=== PATIENT | male | born 1990 ===

== ENCOUNTER 2017-05-23 14:22 | Emergency (ER) | payer OTHER ==
[2017-05-23 14:36] VITALS: BP 148/70; PULSE 98; RESP 18; TEMP 98; O2SAT 100
[2017-05-23] MEDS ORDERED: Lidocaine 2% Inj (20ml) SC ONE (15:12)
[2017-05-23] MEDS ORDERED: Povidone Iodine Topical 10% Sol ONE (15:17)
[2017-05-23] MEDS ORDERED: Oxycodone/Acetaminophen 5/325 mg Tab PO ONE (15:35)
[2017-05-23] MEDS ORDERED: Oxycodone/Acetaminophen 5/325 mg Tab ONE (15:47)
--- NOTE | 2017-05-23 18:05 | ED PDOC ---
HPI: General Adult Time Seen by Provider: 05/23/17 14:38 Chief Complaint (Nursing): Abnormal Skin Integrity Chief Complaint (Provider): Pubic Abscess Additional History Per: Patient Additional Complaint(s): This is 27 y/o male with inga PMH comes to the ED for evaluation and treatment of pubic an abscess since last one week. As per patient, this abscess started as a pimple which progressed to erythema, tenderness and got infected. Patient admits severe pain at infected site, and associated with fever which he took tylenol. Denies any Urinary symptoms, dizziness, SOB, chest pain or n/v/d. Past Medical History Reviewed: Vital Signs Vital Signs: Last Vital Signs Temp 98 F 05/23/17 14:34 Pulse 98 H 05/23/17 14:34 Resp 18 05/23/17 14:34 BP 148/70 05/23/17 14:34 Pulse Ox 100 05/23/17 14:34 - Medical History PMH: Denies: Anemia, Asthma, CAD - Surgical History Surgical History: No Surg Hx - Family History Family History: States: No Known Family Hx - Living Arrangements Living Arrangements: With Family - Social History Current smoker - smoking cessation education provided: No Ex-Smoker (has not smoked in the last 12 months): No Alcohol: Occasional Drugs: Denies - Home Medications Home Medications: Ambulatory Orders Medication Instructions Recorded Cephalexin [Keflex] 500 mg PO QID #28 capsule 05/23/17 Ibuprofen [Motrin] 600 mg PO Q6H PRN #20 tab 05/23/17 Sulfamethoxazole/Trimethoprim 1 tab PO BID #14 tab 05/23/17 [Bactrim DS 800 mg-160 mg] - Allergies Allergies/Adverse Reactions: Allergies Allergy/AdvReac Type Severity Reaction Status Date / Time No Known Allergies Allergy Verified 05/23/17 14:34 Review of Systems Constitutional: Positive for: Fever. Negative for: Chills Eyes: Negative for: Pain ENT: Negative for: Ear Pain Cardiovascular: Negative for: Chest Pain Respiratory: Negative for: Cough, Shortness of Breath Genitourinary Male: Negative for: Dysuria Musculoskeletal: Negative for: Neck Pain Skin: Negative for: Rash Neurological: Negative for: Weakness, Numbness Physical Exam - Physical Exam Appears: Positive for: No Acute Distress Head Exam: Positive for: ATRAUMATIC Skin: Positive for: Normal Color, Warm, Dry Eye Exam: Positive for: Normal appearance ENT: Positive for: Normal ENT Inspection Neck: Positive for: Normal Cardiovascular/Chest: Positive for: Regular Rate, Rhythm, Chest Non Tender Respiratory: Positive for: Normal Breath Sounds Gastrointestinal/Abdominal: Positive for: Normal Exam, Bowel Sounds, Soft. Negative for: Tenderness Male Genital Exam: Positive for: other (Right pubic 8x4cm erythema with induration and fluctuating mass with significant tenderness to touch.) Back: Positive for: Normal Inspection Neurologic/Psych: Positive for: Alert, Oriented - ECG O2 Sat by Pulse Oximetry: 100 - Progress ED Course And Treament: 27 y/o male with pubic abscess - I & D was done with Lidocain 2% - Percocet stat given Case discussed and Procedure done with Dr. Panda Medical Decision Making Medical Decision Making: Pubic Abscess Procedures - Time-Out Type of Procedure: I & D Site of Procedure: Right pubic area Correct Patient (with visual ID + MR# on ID Band): Yes Correct Procedure: Yes Correct Site Marked: Yes Medication Reconciliation / Bloodwork / Allergies Checked: Yes - Incision and Drainage Site: Right Pubic area Blade Size: 16 I & D Procedure: betadine prep, sterile dressing applied, gauze wick placed Progress: Right pubic I&D was done with half a cm cut, Lots of blood with pus drained. Patient was instructed to come back in 2 days and ER precautions discussed with patient Disposition - Clinical Impression Clinical Impression: Abscess - Patient ED Disposition Is Patient to be Admitted: No - Disposition Referrals: [facility] [Outside] [facility] [Outside] Disposition: Routine/Home Disposition Time: 18:14 Condition: IMPROVED Additional Instructions: follow up with your doctor or in the ER in 2 days for packing removal. return to the ED with any worsening or concerning symptoms. Prescriptions: Cephalexin [Keflex] 500 mg PO QID #28 capsule Ibuprofen [Motrin] 600 mg PO Q6H PRN #20 tab PRN Reason: Pain, Moderate (4-7) Sulfamethoxazole/Trimethoprim [Bactrim DS 800 mg-160 mg] 1 tab PO BID #14 tab Instructions: Abscess (ED) Forms: [employer] (Slovak), [facility] ED School/Work Excuse
== END 2017-05-23 16:07 | disposition home or self-care (01) ==
LOC: H.ER 14:22
DX: L02.214 Cutaneous abscess of groin (principal)

== ENCOUNTER 2017-05-25 11:09 | Emergency (ER) | payer OTHER ==
[2017-05-25 12:17] VITALS: BP 117/66; PULSE 77; RESP 16; TEMP 97.8; O2SAT 98
[2017-05-25] MEDS ORDERED: Lidocaine 2% w Epi 1:100,000 Inj IJ ONE (12:59)
--- NOTE | 2017-05-25 13:03 | ED PDOC ---
HPI: Wound Care - HPI Time Seen by Provider: 05/25/17 12:42 Chief Complaint (Nursing): Wound Check Chief Complaint (Provider): Wound Check History Per: Patient Exam Limitations: no limitations Onset/Duration Of Symptoms: Days (x2) Current Symptoms Are (Timing): Still Present Quality Of Symptoms: Painful, Swollen Additional Complaint(s): 27 y/o male presents to the emergency department for a wound check. Was seen here 2 days ago and had I&D at the right groin. Patient now states packing fell out while in the shower yesterday. Reports taking Bactrim and Keflex as instructed. No fever or chills. Notes swelling appears the same as before. PMD: None Past Medical History Reviewed: Historical Data, Nursing Documentation, Vital Signs Vital Signs: Last Vital Signs Temp 97.8 F 05/25/17 12:15 Pulse 77 05/25/17 12:15 Resp 16 05/25/17 12:15 BP 117/66 05/25/17 12:15 Pulse Ox 98 05/25/17 12:15 - Medical History PMH: No Chronic Diseases Denies: Anemia, Asthma, CAD - Surgical History Surgical History: No Surg Hx - Family History Family History: States: Unknown Family Hx - Social History Current smoker - smoking cessation education provided: No Alcohol: None Drugs: Denies - Home Medications Home Medications: Ambulatory Orders Medication Instructions Recorded Cephalexin [Keflex] 500 mg PO QID #28 capsule 05/23/17 Ibuprofen [Motrin] 600 mg PO Q6H PRN #20 tab 05/23/17 Sulfamethoxazole/Trimethoprim 1 tab PO BID #14 tab 05/23/17 [Bactrim DS 800 mg-160 mg] Naproxen 1 tab PO Q12 PRN #10 tab 05/25/17 - Allergies Allergies/Adverse Reactions: Allergies Allergy/AdvReac Type Severity Reaction Status Date / Time No Known Allergies Allergy Verified 05/23/17 14:34 Review of Systems ROS Statement: Except As Marked, All Systems Reviewed And Found Negative Constitutional: Negative for: Fever, Chills Skin: Positive for: Other (abscess at right groin, s/p I&D, packing fell out) Physical Exam - Reviewed Nursing Documentation Reviewed: Yes Vital Signs Reviewed: Yes - Physical Exam Appears: Positive for: Non-toxic, No Acute Distress Head Exam: Positive for: ATRAUMATIC, NORMAL INSPECTION, NORMOCEPHALIC Skin: Positive for: Normal Color, Warm, Dry Eye Exam: Positive for: EOMI, Normal appearance, PERRL Male Genital Exam: Positive for: other (Right inguinal area: 5.5 cm region of erythema and induration, unable to express any drainage ) Neurologic/Psych: Positive for: Alert, Oriented - ECG O2 Sat by Pulse Oximetry: 98 (RA) Pulse Ox Interpretation: Normal Procedure: Wound Repair - Time Out Time Out: Side verified, Site verified, Patient ID confirmed, Sterile procedures obs. - Consent Obtained Consent obtained: Verbal - Performed by Performed by: Mid-level Provider (GREG Seth) - Location Location:: Right, Leg (Groin) Medical Decision Making Medical Decision Making: Time: 12:59 Initial Plan: * Naproxen 500 mg PO * Ordered Lidocaine 2% w/ Epi for repeat I&D *see procedure note below* Time: 13:29 Patient tolerated procedure well and is medically stable for discharge. Given rx for Naproxen. Patient advised to continue with antibiotics as prescribed. Counseling was provided and all questions were answered regarding the need for follow up in 3 days for wound check. There is agreement to discharge plan. Return if symptoms persist or worsen. Scribe Attestation: Documented by Pilar Enrique, acting as a scribe for Cesario Seth PA-C Provider Scribe Attestation: All medical record entries made by the Scribe were at my direction and personally dictated by me. I have reviewed the chart and agree that the record accurately reflects my personal performance of the history, physical exam, medical decision making, and the department course for this patient. I have also personally directed, reviewed, and agree with the discharge instructions and disposition. Disposition - Clinical Impression Clinical Impression: Abscess, Cellulitis - Patient ED Disposition Is Patient to be Admitted: No Counseled Patient/Family Regarding: Diagnosis, Need For Followup, Rx Given - Disposition Disposition: Routine/Home Disposition Time: 13:29 Condition: STABLE Additional Instructions: Follow up at the clinic or with PMD in 3 days for wound check Prescriptions: Naproxen 1 tab PO Q12 PRN #10 tab PRN Reason: Pain, Severe (8-10) Instructions: Cellulitis (ED), Abscess (ED) Forms: [employer] (Divehi), [facility] ED School/Work Excuse - POA Present On Arrival: None - Incision & Drainage Of Abscess Anesthesia: Lidocaine 2%, With Epi Procedure: Drained Pus (Previous incision deepened and lengthened to 2 cm with moderate purulent drainage expressed), Irrigated Cavity W/Saline, Packed W/ Gauze (1/2in sterile gauze )
[2017-05-25] MEDS ORDERED: Naproxen 500 MG TAB PO ONE (13:26)
[2017-05-25] MEDS ORDERED: Naproxen 500 MG TAB PO STA (13:29)
== END 2017-05-25 14:10 | disposition home or self-care (01) ==
LOC: H.ER 11:09
DX: L02.214 Cutaneous abscess of groin (principal)